=== PATIENT | male | born 1990 | race Hispanic/Latino ===

== ENCOUNTER → 2023-04-05 | Emergency (ER) | payer BC, SELFPAY ==
[~2023-04-05] MED LIST: FAMOTIDINE 20 MG/2 ML VIAL IV ONE; MORPHINE 4 MG/ML SYR ONE; NA CHLORIDE 0.9% 1,000 ML ONE; ONDANSETRON 4 MG/2 ML VIAL ONE
--- OUTSIDE RECORDS SUMMARY | 2023-04-05 11:16 | XMS REPORT | Continuity of Care Document ---
Author Name Unknown Address [address] [address] th[address] Address 1200 [facility] 1 [address] [place] [address] Care Team Providers Care Clip On Sunglasses Assembler Name Role Phone Suzette Figueroa Attending Clinician Unavailable Encounters Start Date/Time End Date/Time Encounter Type Admission Type Attending Clinicians Care Facility Care Department Encounter ID Source 2021-03-03 13:38:56 Outpatient Suzette Figueroa [facility] [id number] [facility] 2021-03-03 13:36:26 Outpatient Suzette Figueroa [facility] [id number] [facility]
[2023-04-05 12:02] LABS: Absolute Lymphocytes (CBC) 1.2 K/uL (0.7-4.9); Hematocrit 49.4 % (39.6-49.0); Lymphocytes % 12.5 % (15.3-44.8); MCV 89.6 fL (80-100); MPV 8.7 fL (7.6-11.3); Platelets 267 thou/uL (152-406); RBC Red Blood Cell Count 5.52 M/uL (4.33-5.43)
[2023-04-05 12:04] LABS: Specific Gravity 1.022 (1.005-1.030); Urine Bacteria None Seen /HPF (<20); Urine Bilirubin NEGATIVE (Negative); Urine Blood Trace (Negative); Urine Clarity Clear (Clear); Urine Color Light-Yellow (Yellow); Urine Glucose NEGATIVE (Negative); Urine Mucus Slight /HPF (None Seen); Urine Protein NEGATIVE (Negative); Urine RBC <5 /HPF (None Seen); Urine Urobilinogen Normal (Normal); Urine pH 5.5 (5.0-7.0)
--- NOTE | 2023-04-05 12:13 | RAD REPORT ---
EXAM DESCRIPTION: US - Abdomen Exam Limited - 04/05/2023 12:03 pm CLINICAL HISTORY: ABD PAIN COMPARISON: Abdomen Pelvis W Contrast dated 04/05/2023 FINDINGS: The gallbladder demonstrates multiple echogenic foci along the wall of the gallbladder. Th indira are along the dependent and nondependent wall. The largest measures 5 millimeters. No pericholecy stic fluid or gallbladder wall thickening. The common bile duct is normal measuring 3 mm. The liver demonstrates no findings of intrahepatic biliary dilatation. IMPRESSION: Small gallbladder polyps versus tumefactive sludge. No definite gallstones. No evidence of cholelithiasis or biliary duct dilatation. Consider 12 month follow-up ultrasound to reassess the possible polyps.
[2023-04-05 12:14] LABS: Albumin 3.9 g/dL (3.4-5.0); Bilirubin Total 0.5 mg/dL (0.2-1.0); Potassium 3.9 mEq/L (3.5-5.1); Protein, Total 7.8 g/dL (6.4-8.2)
--- NOTE | 2023-04-05 12:19 | RAD REPORT ---
EXAM DESCRIPTION: CTAbdomen Pelvis W Contrast - 04/05/2023 12:12 pm CLINICAL HISTORY: ABD PAIN COMPARISON: No comparisons TECHNIQUE: CT of the abdomen and pelvis was performed. All CT scans are performed using dose optimization technique as appropriate and may include automated exposure control or mA/KV adjustment according to patient size. FINDINGS: Lower chest: No acute abnormality. Liver: No acute abnormality or suspicious lesions. Biliary: No biliary ductal dilatation. Stomach: No significant focal abnormality. Duodenum: No significant focal abnormality. Pancreas: No significant abnormality. Spleen: No significant abnormality. Adrenal: No suspicious lesions. Kidney/ureter: No hydronephrosis. No renal calculi. Too small to characterize and/or benign appearing renal lesions are noted. Retroperitoneum: No retroperitoneal adenopathy. Vascular: No aneurysm. Bowel: No significant focal abnormality. Normal appendix. Peritoneum: No ascites or free air. Bladder: Grossly unremarkable. Reproductive: No adnexal masses. Bones: No acute fracture. Other: n/a IMPRESSION: No acute intra-abdominal or pelvic finding. Normal appendix.
--- NOTE | 2023-04-05 13:49 | EDPHYS ---
Physician Documentation [facility] Name: Derian Mcneil Age: 32 yrs Sex: Male : 1990 Arrival Date: 04/05/2023 Time: 11:15 Bed 10 Private MD: ED Physician Vlad Null HPI: 04/05 12:15 This 32 yrs old Male presents to ER via Ambulatory with complaints of rn Abdominal Pain. 12:15 The patient presents with abdominal pain in the right upper quadrant. Onset: The rn symptoms/episode began/occurred 1 week(s) ago. The symptoms do not radiate. Associated signs and symptoms: Pertinent positives: nausea, Pertinent negatives: blood in stools, chest pain, fever. The symptoms are described as achy, crampy. Modifying factors: The symptoms are alleviated by nothing, the symptoms are aggravated by food. Severity of pain: At its worst the pain was moderate in the emergency department the pain is unchanged. The patient has not experienced similar symptoms in the past. Patient reports right upper quadrant abdominal pain associated with nausea for 1 week. Worse with food and eating. No fever. No vomiting or blood in stool. No diarrhea. No known chronic GI problems or cholelithiasis. Denies chronic acid reflux.. Historical: - Allergies: 11:20 No Known Allergies; ll1 - PMHx: 11:30 None; ll1 - PSHx: 11:30 R shoulder SX; ll1 - Immunization history:: Adult Immunizations up to date. - Social history:: Smoking status: Patient reports the use of cigarette tobacco products, denies chronic smoking, but will smoke occasionally. - Family history:: not pertinent. - Hospitalizations: : No recent hospitalization is reported. ROS: 12:15 Constitutional: Negative for fever, chills, and weight loss, Cardiovascular: Negative rn for chest pain, palpitations, and edema, Respiratory: Negative for shortness of breath, cough, wheezing, and pleuritic chest pain, Abdomen/GI: Positive for upper abdominal pain and nausea Back: Negative for injury and pain, : Negative for injury, bleeding, discharge, and swelling, MS/Extremity: Negative for injury and deformity, Skin: Negative for injury, rash, and discoloration, Neuro: Negative for headache, weakness, numbness, tingling, and seizure, Exam: 12:15 Constitutional: This is a well developed, well nourished patient who is awake, alert, rn and in no acute distress. Cardiovascular: Regular rate and rhythm. No pulse deficits. Respiratory: No increased work of breathing, no retractions or nasal flaring. Abdomen/GI: Soft, positive for right upper quadrant tenderness, no guarding. No rebound. No distention. Negative Walters MS/ Extremity: Pulses equal, no cyanosis. Neuro: Awake and alert, GCS 15 Vital Signs: 11:30 BP 156 / 86; Pulse 85; Resp 16; Temp 97.6; Pulse Ox 98% ; Weight 97.52 kg; Height 5 ft. ll1 11 in. ; Pain 8/10; 12:49 BP 127 / 94; Pulse 71; Resp 16; Pulse Ox 98% on R/A; Pain 8/10; iw 14:06 BP 115 / 77; Pulse 79; Resp 16; Pulse Ox 97% on R/A; ll1 11:30 Body Mass Index 29.99 (97.52 kg, 180.34 cm) ll1 11:30 Pain Scale: Adult ll1 12:49 Pain Scale: Adult iw MDM: 11:21 Patient medically screened. rn 13:46 Differential diagnosis: cholecystitis, Cholelithiasis, diverticulitis, gastritis, rn gastroesophageal reflux disease, Poorly functioning gallbladder. Data reviewed: vital signs, nurses notes, lab test result(s), radiologic studies, CT scan, ultrasound, and as a result, I will discharge patient. Counseling: I had a detailed discussion with the patient and/or guardian regarding the historical points, exam findings, and any diagnostic results supporting the discharge/admit diagnosis, lab results, radiology results, the need for outpatient follow up, to return to the emergency department if symptoms worsen or persist or if there are any questions or concerns that arise at home. Special discussion: Based on the patient's Hx, exam, and Dx evaluation, there is no indication for emergent surgery or inpatient Tx. It is understood by the patient/guardian that if the Sx's persist or worsen they need to return immediately for re-evaluation. I discussed with the patient/guardian in detail that at this point there is no indication for admission to the hospital. It is understood, however, that if the symptoms persist or worsen the patient needs to return immediately for re-evaluation. 04/05 11:37 Order name: CBC with Diff; Complete Time: 12:14 04/05 11:37 Order name: CMP; Complete Time: 12:14 04/05 11:37 Order name: Lipase; Complete Time: 12:14 04/05 11:37 Order name: Urinalysis w/ reflexes; Complete Time: 12:14 04/05 11:37 Order name: CT Abd/Pelvis - IV Contrast Only; Complete Time: 12:28 04/05 11:38 Order name: US Abdomen Limited; Complete Time: 12:14 04/05 11:37 Order name: IV Saline Lock; Complete Time: 11:50 04/05 11:37 Order name: Labs collected and sent; Complete Time: 11:50 ll1 Administered Medications: 12:50 Drug: NS 0.9% IV 1000 ml IV at 1 bolus Per protocol; 1000 mL bolus Route: IV; Rate: 1 iw bolus; Site: right antecubital; 14:07 Follow up: Response: No adverse reaction; IV Status: Completed infusion; IV Intake: ll1 300ml 12:50 Drug: Famotidine IVP 20 mg IVP once; dilute with 10 mL 0.9% NaCl; give over 2 minutes iw Route: IVP; Site: right antecubital; 14:06 Follow up: Response: No adverse reaction ll1 12:50 Drug: Ondansetron IVP 4 mg IVP once; over 2 minutes Route: IVP; Site: right antecubital;iw 14:07 Follow up: Response: No adverse reaction ll1 12:50 Drug: morphine IVP or IV 4 mg IVP once over 4 mins Route: IVP; Infused Over: 4 mins; iw Site: right antecubital; 14:07 Follow up: Response: No adverse reaction ll1 Disposition Summary: 04/05/23 13:47 Discharge Ordered Notes: Location: Home rn Problem: new rn Symptoms: have improved rn Condition: Stable rn Diagnosis - Abdominal pain, unspecified rn - Disease of gallbladder, unspecified - sludge(04/05/23 13:48) rn Followup: rn - With: Private Physician - When: As needed - Reason: Recheck today's complaints, Re-evaluation by your physician Discharge Instructions: - Discharge Summary Sheet rn - Abdominal Pain, Adult rn - Biliary Colic, Adult rn - Gallbladder Nuclear Scan rn Forms: - Medication Reconciliation Form rn - Thank You Letter rn - Antibiotic automatic pattern edger - Prescription Opioid Use rn - Patient Portal Instructions rn - Leadership Thank You Letter rn Prescriptions: - Tramadol 50 mg Oral Tablet - take 1 tablet ORAL route every 8 hours as needed; 12 tablet; Refills: 0, rn Product Selection Permitted Signatures: Dispatcher [employer] Venus Mchugh RN RN Vlad Ellis MD MD rn Lewis, Lynsay, RN RN ll1 Corrections: (The following items were deleted from the chart) 13:48 13:47 Disease of gallbladder, unspecified rn rn
--- NOTE | 2023-04-05 13:49 | ER ---
Nurse's Notes [facility] Name: Derian Mcneil Age: 32 yrs Sex: Male : 1990 Arrival Date: 04/05/2023 Time: 11:15 Bed 10 Private MD: Diagnosis: Abdominal pain, unspecified;Disease of gallbladder, unspecified-sludge Presentation: 04/05 11:30 Chief complaint: Patient states: RUQ/epigastric pain for 1 week, worse after eating. ll1 Nausea and dry heaves in the morning. No fevers. Coronavirus screen: Client denies travel out of the [place] in the last 14 days. At this time, the client does not indicate any symptoms associated with coronavirus-19. Ebola Screen: Patient denies travel to an Ebola-affected area in the 21 days before illness onset. Initial Sepsis Screen: Does the patient meet any 2 criteria? No. Patient's initial sepsis screen is negative. Does the patient have a suspected source of infection? Yes: Acute abdominal pain. Risk Assessment: Do you want to hurt yourself or someone else? Patient reports no desire to harm self or others. Onset of symptoms was March 29, 2023. 11:30 Method Of Arrival: Ambulatory ll1 11:30 Acuity: ASIM 3 ll1 Triage Assessment: 11:30 General: Appears uncomfortable, Behavior is calm, cooperative, appropriate for age. ll1 Pain: Complains of pain in RUQ/epigastric Quality of pain is described as aching. GI: Abdomen is flat, Bowel sounds present X 4 quads. Reports upper abdominal pain, nausea. Historical: - Allergies: 11:20 No Known Allergies; ll1 - PMHx: 11:30 None; ll1 - PSHx: 11:30 R shoulder SX; ll1 - Immunization history:: Adult Immunizations up to date. - Social history:: Smoking status: Patient reports the use of cigarette tobacco products, denies chronic smoking, but will smoke occasionally. - Family history:: not pertinent. - Hospitalizations: : No recent hospitalization is reported. Screenin:00 [facility] ED Fall Risk Assessment (Adult) Score/Fall Risk Level 0 - 2 = Low Risk. Abuse iw screen: Denies threats or abuse. Denies injuries from another. Nutritional screening: No deficits noted. Tuberculosis screening: No symptoms or risk factors identified. Assessment: 12:49 Reassessment: Patient appears in no apparent distress at this time. Patient and/or iw family updated on plan of care and expected duration. Pain level reassessed. Patient is alert, oriented x 3, equal unlabored respirations, skin warm/dry/pink. 14:06 Reassessment: No changes from previously documented assessment. Patient and/or family ll1 updated on plan of care and expected duration. Pain level reassessed. Patient is alert, oriented x 3, equal unlabored respirations, skin warm/dry/pink. Patient states feeling better. Vital Signs: 11:30 BP 156 / 86; Pulse 85; Resp 16; Temp 97.6; Pulse Ox 98% ; Weight 97.52 kg; Height 5 ft. ll1 11 in. ; Pain 8/10; 12:49 BP 127 / 94; Pulse 71; Resp 16; Pulse Ox 98% on R/A; Pain 8/10; iw 14:06 BP 115 / 77; Pulse 79; Resp 16; Pulse Ox 97% on R/A; ll1 11:30 Body Mass Index 29.99 (97.52 kg, 180.34 cm) ll1 11:30 Pain Scale: Adult ll1 12:49 Pain Scale: Adult iw ED Course: 11:19 Patient arrived in ED. mr 11:21 Vlad Null MD is Attending Physician. rn 11:21 Arm band placed on. ll1 11:30 Patient has correct armband on for positive identification. Provided Education on: . iw 11:32 Triage completed. ll1 11:50 CBC with Diff Sent. bc6 11:50 CMP Sent. bc6 11:50 Lipase Sent. bc6 11:50 Urinalysis w/ reflexes Sent. bc6 11:50 Inserted saline lock: 20 gauge in right antecubital area, using aseptic technique. bc6 Blood collected. 12:05 US Abdomen Limited In Process Unspecified. EDMS 12:14 CT Abd/Pelvis - IV Contrast Only In Process Unspecified. EDMS 14:05 No provider procedures requiring assistance completed. IV discontinued, intact, ll1 bleeding controlled, No redness/swelling at site. Pressure dressing applied. Administered Medications: 12:50 Drug: NS 0.9% IV 1000 ml IV at 1 bolus Per protocol; 1000 mL bolus Route: IV; Rate: 1 iw bolus; Site: right antecubital; 14:07 Follow up: Response: No adverse reaction; IV Status: Completed infusion; IV Intake: ll1 300ml 12:50 Drug: Famotidine IVP 20 mg IVP once; dilute with 10 mL 0.9% NaCl; give over 2 minutes iw Route: IVP; Site: right antecubital; 14:06 Follow up: Response: No adverse reaction ll1 12:50 Drug: Ondansetron IVP 4 mg IVP once; over 2 minutes Route: IVP; Site: right antecubital;iw 14:07 Follow up: Response: No adverse reaction ll1 12:50 Drug: morphine IVP or IV 4 mg IVP once over 4 mins Route: IVP; Infused Over: 4 mins; iw Site: right antecubital; 14:07 Follow up: Response: No adverse reaction ll1 Intake: 14:07 IV: 300ml; Total: 300ml. ll1 Outcome: 13:47 Discharge ordered by MD. solorzano 14:07 Patient left the ED. ll1 Signatures: Dispatcher [employer] EDSD Priscilla Jasmine, Brandon Reg Venus Coleman, Vlad Dennis RN, MD MD rn Lewis, Lynsay, RN RN ll1 So Victoria Bel
[2023-04-05 14:40] VITALS: BP 115/77; TEMP 97.6; O2SAT 97
== END ==
LOC: ER 11:15
DX: K82.8 Other specified diseases of gallbladder (principal); F17.210 Nicotine dependence, cigarettes, uncomplicated
CPT/HCPCS: 85025; 81001; 36415; 83690; 80053; 74177; 76705; Q9967; J2405; J7030

== ENCOUNTER 2023-09-06 08:25 | Emergency (ER) | payer BC ==
--- OUTSIDE RECORDS SUMMARY | 2023-09-06 08:28 | XMS REPORT | Continuity of Care Document ---
Author Name Unknown Address [address] [place] [address] [place], [place] [id number] [facility] Address [address] [address] [address] [place] [address] Care Team Providers Care Fold Skiver Name Role Phone Suzette Figueroa Attending Clinician Unavailable Encounters Start Date/Time End Date/Time Encounter Type Admission Type Attending Clinicians Care Facility Care Department Encounter ID Source 2021-03-03 13:38:56 Outpatient Suzette Figueroa [facility] [id number] [facility] 2021-03-03 13:36:26 Outpatient Suzette Figueroa [facility] [id number] [facility]
--- NOTE | 2023-09-06 08:55 | EDPHYS ---
Physician Documentation [facility] Name: Derian Mcneil Age: 33 yrs Sex: Male : 1990 Arrival Date: 09/06/2023 Time: 08:25 Bed 6 Private MD: STERLING Physician Breana Fatima HPI: 09/05 08:51 This 33 yrs old Male presents to ER via Ambulatory with complaints of Staple sd2 Removal. 08:51 The patient has roslyn on the scalp. Previous treatment: The patient was initially sd2 treated 9 day(s) ago, Treatment type: The patient's original treatment included roslyn. Sutures/roslyn progress: The patient has no c/o's. The wound is well-healing with no redness, swelling, discharge, or dehiscence reported. Historical: - Allergies: 08:40 No Known Allergies; ll1 - PSHx: 08:40 R shoulder SX; ll1 - Immunization history:: Adult Immunizations up to date. - Infectious Disease History:: Denies. - Social history:: Smoking status: Patient denies any tobacco usage or history of. ROS: 08:51 Constitutional: Negative for fever, chills, and weight loss, Skin: Positive for injury, sd2 Negative for rash, and discoloration, Neuro: Negative for headache, numbness and tingling. Exam: 08:51 Constitutional: This is a well developed, well nourished patient who is awake, alert, sd2 and in no acute distress. Head/Face: Normocephalic, 3 roslyn noted to left frontal scalp area, well healed, no surrounding erythema, induration, fluctuance or signs of infection Skin: Warm, dry with normal turgor. Normal color with no rashes, no lesions, and no evidence of cellulitis. Vital Signs: 08:41 BP 125 / 85; Pulse 77; Resp 17; Temp 97.5; Pulse Ox 97% on R/A; Pain 0/10; ll1 08:41 Pain Scale: Adult ll1 Procedures: 08:51 Suture/Staple removal: Removed 3 roslyn, from scalp, site appears well healed, dressed sd2 with None. Patient tolerated well. MDM: 08:35 Patient medically screened. sd2 08:51 Data reviewed: vital signs, nurses notes. Counseling: I had a detailed discussion with sd2 the patient and/or guardian regarding the historical points, exam findings, and any diagnostic results supporting the discharge/admit diagnosis, to return to the emergency department if symptoms worsen or persist or if there are any questions or concerns that arise at home. ED course: [place] removed without difficulty or complication. Advised of continued wound care. Verbalizes understanding of strict return precautions.. Administered Medications: No medications were administered Disposition Summary: 09/06/23 08:54 Discharge Ordered Problem: an ongoing problem sd2 Symptoms: are resolved sd2 Condition: Stable sd2 Diagnosis - Encounter for staple removal sd2 - Scalp laceration, subsequent encounter sd2 Followup: sd2 - With: Private Physician - When: As needed - Reason: Discharge Instructions: - Discharge Summary Sheet sd2 - Sutures, Freeport, or Adhesive Wound Closure sd2 Forms: - Medication Reconciliation Form sd2 - Antibiotic Education sd2 - Prescription Opioid Use sd2 - Patient Portal Instructions sd2 - Leadership Thank You Letter sd2 Signatures: Delvis Ramirez RN RN 1 Zehra Arango RN RN ld1 Breana Fatima MD MD sd2
--- NOTE | 2023-09-06 08:55 | ER ---
Nurse's Notes [facility] Name: Derian Mcneil Age: 33 yrs Sex: Male : 1990 Arrival Date: 09/06/2023 Time: 08:25 Bed 6 Private MD: Diagnosis: Encounter for staple removal;Scalp laceration, subsequent encounter Presentation: 09/05 08:41 Chief complaint: Patient states: Needs roslyn removed from scalp. No pain or fever. ll1 Coronavirus screen: Client denies travel out of the [place] in the last 14 days. At this time, the client does not indicate any symptoms associated with coronavirus-19. Ebola Screen: Patient denies travel to an Ebola-affected area in the 21 days before illness onset. Initial Sepsis Screen: Does the patient meet any 2 criteria? No. Patient's initial sepsis screen is negative. Does the patient have a suspected source of infection? No. Patient's initial sepsis screen is negative. Risk Assessment: Do you want to hurt yourself or someone else? Patient reports no desire to harm self or others. Onset of symptoms was August 27, 2023. 08:41 Method Of Arrival: Ambulatory ll1 08:41 Acuity: ASIM 5 ll1 Triage Assessment: 09:19 General: Appears in no apparent distress. comfortable, Behavior is calm, cooperative, ld1 appropriate for age. Historical: - Allergies: 08:40 No Known Allergies; ll1 - PSHx: 08:40 R shoulder SX; ll1 - Immunization history:: Adult Immunizations up to date. - Infectious Disease History:: Denies. - Social history:: Smoking status: Patient denies any tobacco usage or history of. Screenin:45 [facility] ED Fall Risk Assessment (Adult) History of falling in the last 3 months, ld1 including since admission No falls in past 3 months (0 pts) Confusion or Disorientation No (0 pts) Intoxicated or Sedated No (0 pts) Impaired Gait No (0 pts) Mobility Assist Device Used No (0 pt) Altered Elimination No (0 pt) Score/Fall Risk Level 0 - 2 = Low Risk Oriented to surroundings, Maintained a safe environment, Educated pt \T\ family on fall prevention, incl call for assistance when getting out of bed, Assessed \T\ reinforced patient's understanding of fall precautions, Provided non-skid footwear, Hourly rounding (assess needs \T\ fall precautionary measures) done, Used ambulatory aids as needed (educated on \T\ assisted with), Used gait belt as appropriate. Abuse screen: Denies threats or abuse. Denies injuries from another. Nutritional screening: No deficits noted. Tuberculosis screening: No symptoms or risk factors identified. Assessment: 08:45 Reassessment: See triage assessment. ld1 08:45 Pain: Denies pain. ld1 Vital Signs: 08:41 BP 125 / 85; Pulse 77; Resp 17; Temp 97.5; Pulse Ox 97% on R/A; Pain 0/10; ll1 08:41 Pain Scale: Adult ll1 ED Course: 08:27 Patient arrived in ED. mr 08:28 Breana Fatima MD is Attending Physician. sd2 08:40 Arm band placed on Patient placed in an exam room, on a stretcher. ll1 08:42 Triage completed. ll1 08:45 Patient has correct armband on for positive identification. Placed in gown. Bed in low ld1 position. Call light in reach. Side rails up X2. Provided Education on: Suture removal. Pulse ox on. NIBP on. Door closed. Noise minimized. Warm blanket given. 08:45 No provider procedures requiring assistance completed. Patient did not have IV access ld1 during this emergency room visit. 09:18 Zehra Arango, RN is Primary Nurse. ld1 Administered Medications: No medications were administered Medication: 08:45 VIS not applicable for this client. ld1 Outcome: 08:45 Condition: stable ld1 08:45 Discharged to home ambulatory, ld1 08:45 Discharge instructions given to patient, Instructed on discharge instructions, follow up and referral plans. Demonstrated understanding of instructions, follow-up care, 08:54 Discharge ordered by . sd2 09:19 Patient left the ED. ld1 Signatures: Priscilla Jasmine, Reg Reg Delvis Ramirez RN RN ll1 Zehra Arango, JESSIE RN ld1 Breana Fatima MD MD sd2
[2023-09-06 14:41] VITALS: BP 125/85; TEMP 97.5; O2SAT 97
== END 2023-09-06 09:19 | disposition home or self-care (01) ==
LOC: ER 08:25
DX: Z48.02 Encounter for removal of sutures (principal)
CPT/HCPCS: 99281; 99283